=== PATIENT | male | born 1945 | race Caucasian/White ===

== ENCOUNTER 2019-10-01 11:00 | Inpatient (IN) | payer MEDICARE, OTHER ==
[~2019-10-01] VITALS: Ht 180.3 cm; Wt 101.8 kg
[2019-10-01] VITALS (221 sets, daily range): BP systolic 112–147; BP diastolic 55–71; PULSE 58–63; TEMP 97.7–98.2; O2SAT 89–100
[~2019-10-01 11:00] MED LIST: LEVITRA10 MG PO; LISINOPRIL/HCTZ1 TA1 PO; MEVACOR20 MG PO; TOPROL XL100 MG PO; ZITHROMAX 250M250 MG PO
[2019-10-01] MEDS ORDERED: NORVASC2.5 MG PO (11:26)
[2019-10-01 11:27] LABS: BASO # 0.1 (0.0-0.2); BASO % 0.6 % (0.0-2.0); EOS # 0.3 (0.0-0.7); EOS % 2.7 % (0-4.0); GRAN # 7.1 (1.4-6.5); GRAN % 69.8 % (42.2-75.2); HEMATOCRIT 38.8 % (42.0-52.0); LYMPH % 19.5 % (20.0-51.0); MEAN CELL VOLUME 96 fl (80.0-100.0); MEAN CORPUSCULAR HEMOGLOBIN 32 pg (27.0-31.0); MEAN CORPUSCULAR HGB CONC 34 g/dl (33.0-37.0); MEAN PLATELET VOLUME 9.4 fl (7.4-10.4); MONO # 0.7 (0.1-0.6); MONO % 7.1 % (1.7-9.3); PLATELET COUNT 176 K/mm3 (130-400); RED BLOOD COUNT 4.05 M/mm3 (4.20-5.60); REDCELL DISTRIBUTION WIDTH-CV 13.2 % (11.5-14.5)
[2019-10-01] MEDS ORDERED: HCTZ 25MG TAB25 MG PO ×2 (11:27→16:50)
[2019-10-01] MEDS ORDERED: COZAAR100 MG PO ×2 (11:28→16:52)
[2019-10-01 11:29] LABS: PROTHROMBIN TIME 11.4 SECONDS (9.7-12.8)
[2019-10-01] MEDS ORDERED: VOLTAREN 75 DR75 MG PO ×2 (11:30→16:53)
[2019-10-01] MEDS ORDERED: AREDS PO (11:33)
[2019-10-01] MEDS ORDERED: [UNRECOGNIZED DRUG - OTHER] PO (11:33)
[2019-10-01 11:34] LABS: ALBUMIN 4.3 gm/dL (3.5-5.0); BILIRUBIN,TOTAL 0.4 mg/dL (0.0-1.0); CALCIUM 9.5 mg/dL (8.4-10.2); CREATININE, serum 0.89 (0.66-1.25); POTASSIUM 4.4 mmol/L (3.4-5.0); TOTAL PROTEIN 7.1 gm/dL (6.4-8.2)
[2019-10-01 11:46] LABS: TROPONIN-I 0.025 ng/mL (0.000-0.035)
--- NOTE | 2019-10-01 14:17 | NUR ---
Report receieved from LUIS DANIEL Delgadillo in ED at this time.
--- NOTE | 2019-10-01 14:33 | NUR ---
Patient transferred to ICU bed 1 via ED stretcher by ED RN with no complications. Patient connected to bedside monitor, vital signs stable. Full assessment completed and documented. Call light placed within reach. Bed in lowest position. Side rails up x3. , Vivian, at bedside. All questions answered and patient has no complaints or concerns at this time. IV medications/gtts assessed and secured.
--- NOTE | 2019-10-01 19:23 | NUR ---
Bedside shift report given to LUIS DANIEL Slaughter. Patient has no complaints or concerns at this time.
--- NOTE | 2019-10-01 19:25 | NUR ---
Bedside report received from LUIS DANIEL Cruz. All drips confirmed. Transfer of care
--- NOTE | 2019-10-01 20:00 | NUR ---
Patient sitting at the bedside watching tv and conversating with his . Patient is alert and oriented x4. Patient has no complaints of pain, states that he knows the feeling is there, but is not having any pain with it. Assessment complete. Lungs are clear bilaterally in all veliz. Heart has a loud murmur. Bowel sounds active x4. Patient's peripheral pulses are palpable in all extremities. Vitals obtained and are within normal limits. No further needs at this time. Will continue to monitor. Call light within reach.
[2019-10-02] VITALS (406 sets, daily range): BP systolic 129–152; BP diastolic 48–103; PULSE 62–78; TEMP 97.5–98.7; O2SAT 87–100
--- NOTE | 2019-10-02 | NUR ---
Patient awake and resting watching TV. Patient has no complaints of pain at this time, no signs of distress. Requests some crackers, provided. Vitals obtained and remain stable. Will continue to monitor. Call light within reach.
--- NOTE | 2019-10-02 04:00 | NUR ---
Patient is awake sitting at the side of the bed watching tv. No complaints of pain and no signs of distress. Vitals obtained and remain stable. Emptied patient's urinal; he has had good output so far. Patient has no further needs. Will continue to monitor. Call light within reach.
--- NOTE | 2019-10-02 05:15 | NUR ---
Patient requests to get up to use the toilet. Assisted with cords. Patient is otherwise independent.
[2019-10-02 06:10] LABS: BASO # 0.1 (0.0-0.2); EOS # 0.4 (0.0-0.7); EOS % 4.2 % (0-4.0); GRAN # 6.7 (1.4-6.5); GRAN % 71.2 % (42.2-75.2); LYMPH # 1.6 (1.2-3.4); MEAN CELL VOLUME 96 fl (80.0-100.0); MEAN CORPUSCULAR HEMOGLOBIN 32 pg (27.0-31.0); MEAN CORPUSCULAR HGB CONC 33 g/dl (33.0-37.0); MEAN PLATELET VOLUME 9.8 fl (7.4-10.4); MONO # 0.6 (0.1-0.6); MONO % 6.2 % (1.7-9.3); PLATELET COUNT 171 K/mm3 (130-400); RED BLOOD COUNT 3.79 M/mm3 (4.20-5.60); REDCELL DISTRIBUTION WIDTH-CV 13.4 % (11.5-14.5)
[2019-10-02 06:11] LABS: HEMATOCRIT 36.5 % (42.0-52.0)
[2019-10-02 06:25] LABS: ALBUMIN 3.9 gm/dL (3.5-5.0); BILIRUBIN,TOTAL 0.4 mg/dL (0.0-1.0); CALCIUM 9.1 mg/dL (8.4-10.2); CREATININE, serum 0.67 (0.66-1.25); POTASSIUM 4.2 mmol/L (3.4-5.0); TOTAL PROTEIN 6.6 gm/dL (6.4-8.2)
[2019-10-02 06:39] LABS: TROPONIN-I 6.9 ng/mL (0.000-0.035)
--- NOTE | 2019-10-02 07:05 | NUR ---
Bedside report given to LUIS DANIEL Perez. All drips confirmed. Transfer of care at this time.
--- NOTE | 2019-10-02 10:23 | NUR ---
[facility] team called in for [facility] MD Kayli aware pt had full breakfast around 0900.
--- NOTE | 2019-10-02 11:05 | NUR ---
[facility] team here for pt. Spouse arrived and is at bedside
--- NOTE | 2019-10-02 11:39 | NUR ---
SEE MERGE DOCUMENTATION FOR MEDICATION ADMINISTRATION TIMES AND INTRA/POST PROCEDURE SEDATION ASSESSMENTS. PT LAST PO INTAKE 0800; AWARE AND OK TO PROCEED WITH PROCEDURE.
--- NOTE | 2019-10-02 12:23 | NUR ---
Telphone report recieved from LUIS DANIEL Garcia at this time. TR deployed at 1215 with 12mL of air. MD Leila wishes to transfer to higher level of care for AVR/CABG. MD Demarcus informed. Family at bedside and aware, questions invited and answered. Pt AAOx4, RASS=0, pt able to stand and urinate without assistance. Nitroglycerine, Heparin and NS infusions discontinued by CVL per Leila's VORB - order clarified by MD. Pt asymptomatic. Pt sitting on edge of bed, call light in reach.
--- NOTE | 2019-10-02 14:35 | NUR ---
EMS crew here to transfer pt. Pt ambulated unassisted from bed to stretcher, all belongings with family. TR band education provided to EMS, TR band syringe with EMS.
--- NOTE | 2019-10-02 14:39 | NUR ---
Report phoned to LUIS DANIEL Escalera at [facility], questions invited and answered. Call back number provided if further questions required.
== END 2019-10-02 14:35 | disposition short-term general hospital (02) | DRG 282 ==
LOC: COL.ER 11:00 → ICU 13:48
PROVIDERS: Emergency Medicine; ADMIT Student in an Organized Health Care Education/Training Program
PROC: 4A023N7 Measurement of Cardiac Sampling and Pressure, Left Heart, Percutaneous Approach (ICD-10-PCS; principal; 2019-10-01)
PROC: B2111ZZ Fluoroscopy of Multiple Coronary Arteries using Low Osmolar Contrast (ICD-10-PCS; 2019-10-01)
DX: I21.4 Non-ST elevation (NSTEMI) myocardial infarction (principal); M17.0 Bilateral primary osteoarthritis of knee; E78.5 Hyperlipidemia, unspecified; I10 Essential (primary) hypertension; I35.0 Nonrheumatic aortic (valve) stenosis; I25.10 Atherosclerotic heart disease of native coronary artery without angina pectoris; K21.9 Gastro-esophageal reflux disease without esophagitis; Z87.891 Personal history of nicotine dependence; Z88.0 Allergy status to penicillin
CPT/HCPCS: 99222-AI; 99232-AI; 99239; C1769; C1887; J1644; J2250; J2270; J3010; J7030; Q9967

== ENCOUNTER 2019-10-24 12:03 | Inpatient (IN) | payer MEDICARE, OTHER ==
[~2019-10-24] VITALS: Ht 180.3 cm; Wt 110.7 kg
[~2019-10-24 12:03] MED LIST changes: +AREDS PO; +COZAAR100 MG PO; +HCTZ 25MG TAB25 MG PO; +NORVASC2.5 MG PO; +VOLTAREN 75 DR75 MG PO; +[UNRECOGNIZED DRUG - OTHER] PO
--- NOTE | 2019-10-24 16:33 | NUR ---
Report from Ellen at [facility], pt arrived via wheelchair, here, pt A&O, pleasant, denies pain at rest. Glasss and shoes and clothing in place. Pt denies bringing meds here. Called pharm to inform of following coumadin/INRs. Faxed latest INR labs to pharmacy. Notified kitchen of pt's admission and diet order for supper.
[2019-10-24] MEDS ORDERED: TYLENOL 500MG500 MG PO (16:38)
[2019-10-24] MEDS ORDERED: ASPIRIN 81M81 MG/TA2 PO (16:39)
[2019-10-24] MEDS ORDERED: CORDARONE200 MG/TAB PO (16:39)
[2019-10-24] MEDS ORDERED: LASIX 40MG TABL40 MG PO (16:40)
[2019-10-24] MEDS ORDERED: LIPITOR 80MG80 MG PO (16:40)
[2019-10-24] MEDS ORDERED: NITROSTAT0.4 MG/TAB SL (16:41)
[2019-10-24] MEDS ORDERED: LOPRESSOR 225 MG/TAB PO (16:41)
[2019-10-24] MEDS ORDERED: K-DUR20 MEQ PO (16:42)
[2019-10-24] MEDS ORDERED: COUMADIN 3MG3 MG/TAB PO (16:43)
[2019-10-24 17:42] VITALS: BP 107/63; PULSE 103; TEMP 98.2
[2019-10-24 18:00] VITALS: BP 107/63; PULSE 93; TEMP 98.2
--- NOTE | 2019-10-24 19:54 | NUR ---
Patient resting in bed during shift change report from day shift nurse, bed alarm on. No other needs reported.
--- NOTE | 2019-10-24 19:59 | NUR ---
Patient up in chair during shift change report from day shift nurse. Chair alarm on, present in room. No other needs reported.
[2019-10-25 04:46] VITALS: BP 98/64; PULSE 99; TEMP 97.4
--- NOTE | 2019-10-25 06:19 | NUR ---
CONTINUES TO REST UP IN CHAIR, UP TO BATHROOM WITH SLOW BE STEADY GAIT WITH KEYLA KNEE PAIN C/O WITH LEFT MORE THAN RIGHT. REQUESTS TYLENOL FOR PAIN WHEN NEXT AVAILABLE, INFORM 1000 WILL BE NEXT AVAILABLE TIME. NO OTHER NEEDS REPORTED. CHAIR ALARM ENGAGED.
[2019-10-25 07:21] LABS: INR 2.2 (0.8-3.0); PROTHROMBIN TIME 26.5 SECONDS (9.7-12.8)
[2019-10-25 07:30] LABS: CALCIUM 8.6 mg/dL (8.4-10.2); CREATININE, serum 0.88 (0.66-1.25); MAGNESIUM 2.1 mg/dL (1.6-2.3); POTASSIUM 4.3 mmol/L (3.4-5.0)
[2019-10-25 07:36] LABS: BASO # 0.1 (0.0-0.2); BASO % 0.7 % (0.0-2.0); EOS # 0.1 (0.0-0.7); EOS % 1.3 % (0-4.0); GRAN # 8.1 (1.4-6.5); GRAN % 79.1 % (42.2-75.2); LYMPH # 1.2 (1.2-3.4); LYMPH % 11.6 % (20.0-51.0); MEAN CELL VOLUME 99 fl (80.0-100.0); MEAN CORPUSCULAR HGB CONC 31 g/dl (33.0-37.0); MEAN PLATELET VOLUME 8.6 fl (7.4-10.4); MONO # 0.7 (0.1-0.6); MONO % 6.5 % (1.7-9.3); PLATELET COUNT 206 K/mm3 (130-400); RED BLOOD COUNT 2.65 M/mm3 (4.20-5.60); REDCELL DISTRIBUTION WIDTH-CV 15.3 % (11.5-14.5)
[2019-10-25 07:37] LABS: HEMATOCRIT 26.1 % (42.0-52.0); HEMOGLOBIN 8.2 g/dl (13.5-18.0); MEAN CORPUSCULAR HEMOGLOBIN 31 pg (27.0-31.0)
--- NOTE | 2019-10-25 07:49 | NUR ---
RESTING UP IN CHAIR DURING SHIFT CHANGE REPORT GIVEN TO DAY SHIFT NURSE, EATING BREAKFAST, CHAIR ALARM ENGAGED.
--- NOTE | 2019-10-25 07:53 | NUR ---
Patient resting in recliner at this time, call light in reach. Reported not sleeping very well last night, does have an air mattress on bed. Reported that it helped some. Will continue to monitor.
--- NOTE | 2019-10-25 11:06 | NUR ---
Working with OT at this time.
--- NOTE | 2019-10-25 14:36 | NUR ---
SAYDA met with the patient and his brother (Ulysses) to complete initial intake, as the patient is new to [facility]. The patient lives in [place] with his , Ana (ph#[phone]). He reports independence with ADLs and has a walker. The patient's PCP is Dr. Ana Fish and he receives his medications at [facility]. He reports no difficulties obtaining his meds. The patient could not recall if he does have a DPOA-HC completed, but was interested in obtaining a new form for DPOA-HC. SAYDA provided. SAYDA then discussed setting up a family meeting. The patient requested that SW speak to his . SAYDA contacted the patient's and a family meeting was scheduled for tomorrow at 1300. SAYDA informed [facility] Director and will continue to follow.
[2019-10-25 16:08] VITALS: BP 100/72; PULSE 100; TEMP 98.5
--- NOTE | 2019-10-25 19:10 | NUR ---
Patient resting in recliner at this time, call light in reach and family by his side. Patient had his BIMS and 5 page completed, but Family History still needs done. Patient stated that room was too cold and Engineering was called to see if they could make the room warmer. This nurse received Confirmation #[id number]. This was reported to night nurse.
--- NOTE | 2019-10-25 19:19 | NUR ---
PATIENT UP IN CHAIR DURING SHIFT CHANGE REPORT FROM DAY SHIFT NURSE, CHAIR ALARM ENGAGED, NO OTHER NEEDS REPORTED.
[2019-10-26 04:05] VITALS: BP 99/59; PULSE 94; TEMP 98.6
[2019-10-26 07:27] VITALS: BP 104/54
--- NOTE | 2019-10-26 10:15 | NUR ---
Patient resting in recliner at this time, call light in reach and alarm on. Patient attended morning therapies and tolerating diet well. Reports having pain with movement only. See new orders for Ultram per Dr. Fuller.
[2019-10-26 16:26] VITALS: BP 98/66; PULSE 105; TEMP 99.4
--- NOTE | 2019-10-26 16:28 | NUR ---
SAYDA attended a family meeting with the patient and his , Ana. Also present was IPR Director, PT, & OT. IPR Director started by explaining the purpose of the meeting. PT & OT discussed the patient's progress. IPR Director then discussed the team's recommendation of a discharge next Thursday with outpatient PT. The patient and his were in agreeance to this plan. The patient and his report that they would prefer outpatient PT at [facility] and between the times [id number]. SAYDA to contact [facility] to schedule appointment. SAYDA then followed up with the patient and presented and reviewed the IPR Team Conference Note. The patient had no other questions or concerns for SW. SAYDA to continue to follow.
--- NOTE | 2019-10-26 18:30 | NUR ---
Patient attended all therapies today. Patient voiced concern about his increase in weight that was a little over 3 lbs since his admission to [facility] on 10/24/19. This concern will be communicated to day nurse so that Dr. Fuller can be updated. Patient's next set of labs are scheduled for 10/31/[address] Fuller saw patient this morning and low blood pressure was discussed. See new orders for Decrease in Lasix and new parameters if SBP <110. See also new parameters for Metoprolol if SBP <100. Patient was also started on Ultram to help with bilateral leg pain. Patient will be Discharged on Thursday of next week with out patient PT. Patient denies pain at this time, but also reports that he does not have pain unless he is moving. Reported off to night nurse.
[2019-10-26 19:35] VITALS: BP 108/68
--- NOTE | 2019-10-26 20:00 | NUR ---
UP IN CHAIR DURING SHIFT CHANGE REPORT FROM DAY SHIFT NURSE, HAS VISITORS, CHAIR ALARM ENGAGED, NO NEEDS REPORTED.
[2019-10-27 05:35] VITALS: BP 98/68; PULSE 98; TEMP 98.4
--- NOTE | 2019-10-27 08:17 | NUR ---
PATIENT UP IN CHAIR DURING SHIFT CHANGE REPORT TO DAY SHIFT NURSE. CHAIR ALARM ENGAGED.
--- NOTE | 2019-10-27 08:21 | NUR ---
Bedside report from LUIS DANIEL Mcgraw. Pt toileted, returned to chair with alarm on, call lt in reach, glasses and gripper socks in plae, coccyx WNL, own underwear, three incisions to medial left upper leg glued, CDI. Pt has gross edema to BLE.
--- NOTE | 2019-10-27 11:00 | NUR ---
SAYDA contacted Marion at [facility] and secured the patient an outpatient PT appointment for 11/11 at 1240. SAYDA faxed the patient's records to Marion. SAYDA will need to fax the patient's discharge orders to [facility]. . SAYDA notied the patient's RN, Elise, of appointment. SAYDA to continue to follow.
--- NOTE | 2019-10-27 12:39 | NUR ---
Pt cued to use IS, proper technique used, to chair with BLE elevated. Yellow grippers in place, call lt in reach, glasses in place.
--- NOTE | 2019-10-27 13:41 | NUR ---
Admission QIM scores were reviewed by the team. Code of 5 chosen for eating was determined by team discussion to be the most usual performance before interventions for this patient during the assessment period. Code of 5 chosen for oral hygiene was determined by team discussion to be the most usual performance before interventions for this patient during the assessment period.--Priscila Moon, PD
[2019-10-27 17:55] VITALS: BP 103/62; PULSE 100; TEMP 98.9
--- NOTE | 2019-10-27 20:21 | NUR ---
Bedside report to LUIS DANIEL Mauricio. Pt's family visiting. Glasses and grippers in place, reminded pt of fluid restiction.
[2019-10-27 21:00] VITALS: BP 146/80
--- NOTE | 2019-10-27 22:03 | NUR ---
Pt doing well. Alert and oriented. VSS. x1 assist to bathroom. Able to walk with no issues. In room with . took PM meds with no issues. denies needs at this time. call light within reach, will continue to monitor
--- NOTE | 2019-10-28 03:43 | NUR ---
Pt sleeping in bed, scds on. Call light within reach, will continue to monitor
[2019-10-28 05:06] VITALS: BP 107/60; PULSE 111; TEMP 97.6
[2019-10-28 08:52] VITALS: BP 105/58
--- NOTE | 2019-10-28 08:52 | NUR ---
Bedside report from LUIS DANIEL Mauricio. Pt to chair for breakfast, glasses and gripper socks in place, fall wrist band. Uses IS appropriately
[2019-10-28 10:38] VITALS: BP 105/76; PULSE 110
--- NOTE | 2019-10-28 10:47 | NUR ---
Reassessed BP, friend visiting, donned TEDS to BLE with gross edema, grippers in place
[2019-10-28 14:33] LABS: INR 2.3 (0.8-3.0); PROTHROMBIN TIME 27.4 SECONDS (9.7-12.8)
[2019-10-28 17:01] VITALS: BP 98/64; PULSE 87; TEMP 99
--- NOTE | 2019-10-28 20:00 | NUR ---
Patient sitting up in recliner alert and oriented x 4. HS meds along with tylenol reviewed and given. in visiting.
--- NOTE | 2019-10-28 20:38 | NUR ---
Informed Dr. Tracy of pt's cardiac status, no symptoms until pt is with therapy and he becomes dizzy. HR >100s, SBP <110, hx of A. fib. EKG was ordered= A. fib with RVR reported to Dr. Tracy. Resumed metoprolol, evening dose given early as pt has been off of it for a while, bedside report to LUIS DANIEL Dumont. Pt in chair, glasses and grippers in place, visiting.
--- NOTE | 2019-10-29 02:53 | NUR ---
Patient has been resting in bed with eyes closed. Respirations with ease.
[2019-10-29 06:23] VITALS: BP 103/60; PULSE 103; TEMP 98.6
--- NOTE | 2019-10-29 06:24 | NUR ---
PATIENT AWAKENED FOR VITALS. DENIES NEEDS.
[2019-10-29 07:41] VITALS: BP 98/65
--- NOTE | 2019-10-29 07:48 | NUR ---
Patient reported that he slept ok last night. Denied pain when still, given prn Tramadol to help with bilateral knee pain when working with therapy this AM. Will continue to monitor.
--- NOTE | 2019-10-29 15:50 | NUR ---
Patient resting in recliner at this time, call light in reach and is independent in his room. Patient denied any questions today.
[2019-10-29 16:00] VITALS: BP 92/69; PULSE 105; TEMP 98.7
--- NOTE | 2019-10-29 19:20 | NUR ---
Patient attended all therapies today. Denied pain when not in motion, but with movement was 5/10 and given prn Ultram with good effect this AM. Patient tolerated diet well this shift. Had multiple visitors today. He was a one assist with transferring to the bathroom. This nurse assisted patient with removing excess sticky tape from his abdomen and chest from prior heart monitoring electrodes. Denies any questions at this time. Currently resting in recliner, call light in reach and Independent in his room with a walker. Reported off to night nurse.
--- NOTE | 2019-10-29 20:15 | NUR ---
Patient sits up in recliner. in visiting. Patient denies pain at this time but requests tylenol prior to sleep. HS meds and tylenol reviewed and given. Takes icecream for snack.
[2019-10-29 20:21] VITALS: BP 110/65; PULSE 97
--- NOTE | 2019-10-30 02:55 | NUR ---
Patient rests with eyes closed. Respirations with ease.
[2019-10-30 05:49] VITALS: BP 103/63; PULSE 85; TEMP 98.5
--- NOTE | 2019-10-30 05:50 | NUR ---
PATIENT REPORTS HE SLEPT WELL. DENIES PAIN AT THIS TIME. SITS UP IN RECLINER.
--- NOTE | 2019-10-30 12:42 | NUR ---
RESTING IN CHAIR, WATCHING FOOTBALL
[2019-10-30 15:54] VITALS: BP 108/64; PULSE 83; TEMP 998.7
--- NOTE | 2019-10-30 19:16 | NUR ---
Sitting up in chair. Denies pain. Incisions to chest, upper abd, and left leg healing well, edges well approximated, no redness,swelling, or discharge from sites. Patient has 2+ edema to bilat LE. Patient denies needs at this time.
[2019-10-30 20:33] VITALS: BP 105/66; PULSE 103
--- NOTE | 2019-10-30 23:40 | NUR ---
Lying in bed on right side with eyes closed. Respirations even and unlabored. NO signs or symptoms of discomfort noted at this time.
--- NOTE | 2019-10-31 02:32 | NUR ---
Lying supine in bed with eyes closed. Respirations even and unlabored. No signs or symptoms of discomfort noted at this time.
--- NOTE | 2019-10-31 03:40 | NUR ---
Patient ambulates to bathroom and when finished sits up in chair. Denies pain or any concerns or needs at this time.
[2019-10-31 03:47] VITALS: BP 105/69; PULSE 108; TEMP 99
--- NOTE | 2019-10-31 05:57 | NUR ---
Patient sitting up in chair with eyes closed. Respirations even and unlabored. No signs or symptoms of discomfort noted at this time.
[2019-10-31 08:14] VITALS: BP 110/60
[2019-10-31 08:14] LABS: BASO # 0.1 (0.0-0.2); BASO % 0.8 % (0.0-2.0); EOS # 0.1 (0.0-0.7); EOS % 1.9 % (0-4.0); GRAN # 5.2 (1.4-6.5); GRAN % 81.9 % (42.2-75.2); LYMPH # 0.6 (1.2-3.4); LYMPH % 9.8 % (20.0-51.0); MEAN CELL VOLUME 98 fl (80.0-100.0); MEAN CORPUSCULAR HGB CONC 31 g/dl (33.0-37.0); MEAN PLATELET VOLUME 8.5 fl (7.4-10.4); MONO # 0.3 (0.1-0.6); MONO % 5.1 % (1.7-9.3); PLATELET COUNT 181 K/mm3 (130-400); REDCELL DISTRIBUTION WIDTH-CV 15.3 % (11.5-14.5)
[2019-10-31 08:22] LABS: HEMATOCRIT 26.5 % (42.0-52.0); HEMOGLOBIN 8.3 g/dl (13.5-18.0); MEAN CORPUSCULAR HEMOGLOBIN 31 pg (27.0-31.0)
[2019-10-31 08:32] LABS: CALCIUM 8.5 mg/dL (8.4-10.2); CREATININE, serum 0.76 (0.66-1.25); POTASSIUM 4.1 mmol/L (3.4-5.0)
[2019-10-31 08:35] LABS: INR 2.4 (0.8-3.0); PROTHROMBIN TIME 29.2 SECONDS (9.7-12.8)
--- NOTE | 2019-10-31 09:26 | NUR ---
Patient working with therapy at this time. Reports pain 6/10 at this time and given prn arron. Patient wants to talk to Dr. Fuller about increasing pain meds since his pain level was very high prior to coming over to [facility]. He reports that he was taking three pain pills every time, but now only getting one. This will be discussed with physician. Patient refused getting up to use the bathroom this morning. He wanted only the bed gutierrez and the larger one not the small one. Patient only passed gas, no BM this morning.
--- NOTE | 2019-10-31 13:52 | NUR ---
Patient resting in recliner at this time. Attended all therapies today. He asked if he would be able to talk with SW. SW was contacted and will be visiting with him today about getting a blood pressure cuff to use at home. Denies any questions at this time.
--- NOTE | 2019-10-31 14:24 | NUR ---
SW presented the IM form to the patient. The patient understood and signed the form. A copy was provided to the patient, original was placed in the chart.
[2019-10-31 16:38] VITALS: BP 109/69; PULSE 106; TEMP 98.3
--- NOTE | 2019-10-31 20:00 | NUR ---
UP IN CHAIR DURING SHIFT CHANGE REPORT FROM DAY SHIFT NURSE. UP MOD INDEP IN ROOM WITHOUT COMPLAINTS. NO OTHER NEEDS REPORTED.
[2019-10-31 21:07] VITALS: BP 108/63; PULSE 95
--- NOTE | 2019-11-01 01:05 | NUR ---
Resting quietly with eyes closed, breathing even and nonlabored. Does not awaken when room entered.
[2019-11-01 04:50] VITALS: BP 98/66; PULSE 85; TEMP 97.8
--- NOTE | 2019-11-01 07:11 | NUR ---
Patient up in chair during shift change report from day shift nurse. No needs reported currently. Patient continues mod I in room with no difficulty.
--- NOTE | 2019-11-01 07:15 | NUR ---
Patient up in chair during shift change report given to day shift nurse. Patient continues to be mod I in room with no difficulty.
--- NOTE | 2019-11-01 09:37 | NUR ---
Patient resting in recliner at this time. Patient took his lasix last night, but did not urinate through the night. His weight has gone up 0.7 kg since yesterday. Patient is tachy and has an irregular heart rate. See new order for an EKG this AM per Dr. Shine. Patient still planning on going home this afternoon. Discussed discharge and is planning on going home later this afternoon. Will continue to monitor.
--- NOTE | 2019-11-01 12:20 | NUR ---
Patient received a repeat EKG due to irregular and tachy heart rate this morning. Patient still planning on going home this afternoon. No new orders at this time by Dr. Shine. Will continue to monitor.
[2019-11-01] MEDS ORDERED: LASIX 40MG TABL40 MG PO (13:47)
[2019-11-01] MEDS ORDERED: ULTRAM 50MG TAB50 MG PO (14:00)
--- NOTE | 2019-11-01 14:50 | NUR ---
The patient is to discharge this day, 11/01 home with outpatient physical therapy at [facility]. SAYDA faxed discharge orders to . There are no additional needs at this time.
--- NOTE | 2019-11-01 15:30 | NUR ---
Patient Health Summary, Discharge Summary, and Home Meds printed and reviewed with patient and . Stressed importance of follow up appointments. Reviewed medications, provided printed prescription for Ultram. Belongings gathered by LUIS DANIEL/Anne-Marie including, clothes, phone, boiler tube reamer, ipod, and dirty clothes from laundry hamper. Patient was transported via wheelchair by ELLE/Lena and seatbelted for ride home with . Patient and denied any questions. Patient and were educated on the need to get daily weights and to check blood pressures twice a day recording them. Patient and voiced understanding and will be purchasing a scale and blood pressure cuff today on the way home from the hospital. Patient was also educated on the need to continue his fluid restriction and he voiced understanding.
== END 2019-11-01 15:30 | disposition home or self-care (01) | DRG 948 ==
PROVIDERS: ADMIT Internal Medicine
DX: R53.81 Other malaise (principal); I48.19 Other persistent atrial fibrillation; I25.10 Atherosclerotic heart disease of native coronary artery without angina pectoris; I35.0 Nonrheumatic aortic (valve) stenosis; I10 Essential (primary) hypertension; E78.5 Hyperlipidemia, unspecified; F17.210 Nicotine dependence, cigarettes, uncomplicated; M17.0 Bilateral primary osteoarthritis of knee; Z79.82 Long term (current) use of aspirin; Z79.01 Long term (current) use of anticoagulants; Z95.1 Presence of aortocoronary bypass graft; Z95.2 Presence of prosthetic heart valve; Z88.0 Allergy status to penicillin
CPT/HCPCS: 99222-AI; 99231-AI; 99232-AI; 99239

== ENCOUNTER 2019-11-17 11:49 | Day surgery (SDC) | payer MEDICARE, OTHER ==
[~2019-11-17] VITALS: Ht 180.3 cm; Wt 114.0 kg
[~2019-11-17 11:49] MED LIST changes: +ASPIRIN 81M81 MG/TA2 PO; +CORDARONE200 MG/TAB PO; +COUMADIN 3MG3 MG/TAB PO; +K-DUR20 MEQ PO; +LASIX 40MG TABL40 MG PO; +LIPITOR 80MG80 MG PO; +LOPRESSOR 225 MG/TAB PO; +NITROSTAT0.4 MG/TAB SL; +TYLENOL 500MG500 MG PO; +ULTRAM 50MG TAB50 MG PO
[2019-11-17] MEDS ORDERED: BUMEX2 MG PO ×2 (12:31→12:33)
[2019-11-17 12:40] VITALS: BP 121/92; PULSE 91; TEMP 97.9
[2019-11-17 12:53] LABS: HEMOGLOBIN 10.3 g/dl (13.5-18.0); MEAN CELL VOLUME 95 fl (80.0-100.0); MEAN CORPUSCULAR HEMOGLOBIN 30 pg (27.0-31.0); MEAN CORPUSCULAR HGB CONC 32 g/dl (33.0-37.0); MEAN PLATELET VOLUME 8.8 fl (7.4-10.4); PLATELET COUNT 201 K/mm3 (130-400); RED BLOOD COUNT 3.46 M/mm3 (4.20-5.60); REDCELL DISTRIBUTION WIDTH-CV 15.9 % (11.5-14.5)
[2019-11-17 12:56] LABS: HEMATOCRIT 32.7 % (42.0-52.0)
[2019-11-17 12:59] LABS: PROTHROMBIN TIME 24.1 SECONDS (9.7-12.8)
[2019-11-17 13:01] LABS: PARTIAL THROMBOPLASTIN TIME 38.8 SECONDS (26.0-37.0)
[2019-11-17 13:05] LABS: CREATININE, serum 0.94 (0.66-1.25); MAGNESIUM 2.1 mg/dL (1.6-2.3); POTASSIUM 3.8 mmol/L (3.4-5.0)
[2019-11-17 13:37] LABS: THYROID STIMULATING HORMONE 1.46 uIU/mL (0.465-4.680)
[2019-11-17 13:45] VITALS: BP 118/74; PULSE 65
--- NOTE | 2019-11-17 13:45 | NUR ---
CV complete and report received from Corrine Haynes RN. Pt resting well in bed, at bedside.
[2019-11-17 14:00] VITALS: BP 118/79; PULSE 72
[2019-11-17 14:15] VITALS: BP 126/80; PULSE 60
--- NOTE | 2019-11-17 14:15 | NUR ---
Pt has ambulated, voided and opal PO intake s n/v. PIV removed with catheter intact.
--- NOTE | 2019-11-17 14:35 | NUR ---
Pt discharged per w/c by nurse with .
== END 2019-11-17 15:24 | disposition home or self-care (01) ==
LOC: COL.CAR 11:49
PROVIDERS: Internal Medicine Cardiovascular Disease
DX: I48.91 Unspecified atrial fibrillation (principal); I25.2 Old myocardial infarction; I25.10 Atherosclerotic heart disease of native coronary artery without angina pectoris; I35.2 Nonrheumatic aortic (valve) stenosis with insufficiency; K21.9 Gastro-esophageal reflux disease without esophagitis; E78.5 Hyperlipidemia, unspecified; I10 Essential (primary) hypertension; M19.90 Unspecified osteoarthritis, unspecified site; E66.01 Morbid (severe) obesity due to excess calories; Z68.35 Body mass index [BMI] 35.0-35.9, adult; Z95.0 Presence of cardiac pacemaker; Z79.82 Long term (current) use of aspirin; Z79.01 Long term (current) use of anticoagulants; Z95.1 Presence of aortocoronary bypass graft; Z95.2 Presence of prosthetic heart valve; Z87.891 Personal history of nicotine dependence; Z82.49 Family history of ischemic heart disease and other diseases of the circulatory system; Z80.0 Family history of malignant neoplasm of digestive organs
CPT/HCPCS: J2704

== ENCOUNTER 2021-03-20 09:42 | Outpatient (CLI) | payer MEDICARE, OTHER ==
[~2021-03-20] VITALS: Ht 180.3 cm; Wt 110.5 kg
[~2021-03-20 09:42] MED LIST changes: +BUMEX2 MG PO
[2021-03-20] MEDS ORDERED: DAZIDOX10 MG PO (10:55)
[2021-03-20] MEDS ORDERED: VANCOMYCIN 11 G/VIA1 IV (10:55)
[2021-03-20 13:15] VITALS: BP 156/82; PULSE 72; TEMP 98.4
== END 2021-03-20 11:30 | disposition home or self-care (01) ==
LOC: EUO 09:42
DX: Z96.659 Presence of unspecified artificial knee joint (principal)
CPT/HCPCS: C1751

== ENCOUNTER → 2022-07-15 | Outpatient (CLI) | payer MEDICARE ==
[~2022-07-15] MED LIST changes: +DAZIDOX10 MG PO; +VANCOMYCIN 11 G/VIA1 IV
== END ==
LOC: COL.LAB 11:16
DX: L03.116 Cellulitis of left lower limb (principal)